=== PATIENT | male | born 1985 | race Caucasian/White ===

== ENCOUNTER 2019-10-31 09:27 | Emergency (ER) | payer OTHER, SELFPAY ==
[2019-10-31 09:42] VITALS: BP 127/84; PULSE 123; RESP 16; TEMP 38.9; O2SAT 98
--- NOTE | 2019-10-31 10:17 | ED.URI ---
HPI - URI/Sore Throat General Chief Complaint: Upper Respiratory Infection Stated Complaint: Congestion Time Seen by Provider: 10/31/19 10:17 Source: patient and RN notes reviewed Mode of arrival: ambulatory Limitations: no limitations History of Present Illness HPI Narrative: 34-year-old male presents with concern for fever, sore throat, body aches, chills that started last night. He reports he returned from a trip to [facility] on Friday. He reports he was not informed at the airport that he was flying from any area with known exposure to coronavirus, he was not issued a card indicating that he was high risk by the CDC at the airport. Reports taking Sudafed with little relief. MD elicited complaint: cough Related Data Allergies Allergy/AdvReac Type Severity Reaction Status Date / Time SULFA Allergy Unknown Uncoded 04/01/14 18:35 Review of Systems Review of Systems: Narrative: CONSTITUTIONAL: Reports malaise, chills, sweats, fever. EYES: Denies visual changes, redness, or discharge. ENT: Reports rhinorrhea, congestion, sore throat. Denies sinus pain, otalgia. CARDIOVASCULAR: Denies chest pain, palpitations, or edema. RESPIRATORY: Reports occasional cough. Denies dyspnea. GASTROINTESTINAL: Denies abdominal pain, nausea, vomiting, diarrhea SKIN: Denies rash or itching. MUSCULOSKELETAL: Reports myalgia. NEUROLOGIC: Reports headache. All systems reviewed & are unremarkable except as noted in HPI and below PMFSH Social History Social History Gender identity (if verbalized by the patient): Male Comments At time of signature, agree with nursing past medical, surgical, social and family history. There is no relevant family history pertinent to the presenting complaint Exam Narrative: Exam Narrative: GENERAL: Well-appearing, well-nourished, and in no acute distress. HEAD: Normocephalic EYES: PERRLA, conjunctivae clear ENT: Nares clear, turbinates edematous and erythematous, clear discharge. Mucous membranes moist. TM pearly sequeira with sharp light reflex bilaterally; no tragal tenderness. Oropharynx erythematous without lesions. Tonsils mildly enlarged and without exudate, no drooling, no hoarseness, no trismus. NECK: Supple. No lymphadenopathy CHEST: Clear to auscultation, breath sounds equal. No wheezing, rhonchi, rales, or stridor. No respiratory distress, speaks in full sentences. HEART: Regular rate and rhythm. No murmur heard. Normal peripheral pulses. SKIN: Warm, dry, no rash. NEURO: Alert and oriented x3. PSYCH: Normal mood and affect Course Course Emergency Course: Patient is aware of diagnosis, understands and agrees to treatment plan. Anticipatory guidance given. Patient agrees to follow-up as directed and is aware of reasons to seek care at the emergency department. Portions of this record may have been created with voice recognition software Vital Signs Vital signs: Vital Signs Temperature 102.0 F H 10/31/19 09:42 Pulse Rate 123 H 10/31/19 09:42 Respiratory Rate 16 10/31/19 09:42 Blood Pressure 127/84 10/31/19 09:42 Pulse Oximetry 98 10/31/19 09:42 Temperature 102.0 F H 10/31/19 09:42 Pulse Rate 123 H 10/31/19 09:42 Respiratory Rate 16 10/31/19 09:42 Blood Pressure 127/84 10/31/19 09:42 Pulse Oximetry 98 10/31/19 09:42 Reviewed. Pt has been instructed to follow up with his primary care provider within the next week regarding his elevated blood pressure today. MDM - URI/Sore Throat MDM Narrative Medical decision making narrative: Differential diagnosis considered: Strep pharyngitis, allergic rhinitis, upper respiratory tract infection, sinusitis, rhinosinusitis, nasopharyngitis. viral pharyngitis, otitis media, otitis externa, pneumonia, bronchitis, viral cough syndrome, viral syndrome, and influenza. Exam findings show no acute concerns or changes; patient is non-toxic appearing and is in no distress. RN consulted with Sera Gong, with infection control at [facility].
== END 2019-10-31 10:45 | disposition home or self-care (01) ==
PROVIDERS: Emergency Provider Nurse Practitioner
DX: J02.9 Acute pharyngitis, unspecified (principal); R52 Pain, unspecified; R50.9 Fever, unspecified
CPT/HCPCS: 87081; 87804; 87880; 99203; G0463

== ENCOUNTER 2020-04-18 14:43 | Outpatient (CLI) | payer OTHER, SELFPAY ==
[2020-04-18 15:20] LABS: Hematocrit 41.1 % (42.0-52.0); Hemoglobin 14.2 g/dL (14.0-18.0); Mean Corpuscular HGB Conc 34.5 g/dl (32-36); Mean Corpuscular Hemoglobin 32.9 pg (26-34); Mean Corpuscular Volume 95.4 fl (80-100); Mean Platelet Volume 9.4 fl (7.4-10.4); Platelet Count Result 294 k/mm3 (150-375); Red Blood Count 4.31 M/mm3 (4.6-6.20); Red Cell Distribution Width 11.8 % (11.5-14.5)
[2020-04-18 15:32] LABS: Alanine Aminotransferase 45 U/L (4-50); Albumin Level 4.6 g/dL (3.5-5.1); Alkaline Phosphatase 51 U/L (38-126); Aspartate Amino Transferase 56 U/L (17-59); Bilirubin,Total 0.9 mg/dL (0.2-1.3); Cholesterol 204 mg/dL (0-200); HDL Direct 84 mg/dL; Triglycerides 53 mg/dL (<150)
[2020-04-18 15:43] LABS: LDL Cholesterol Direct 91 mg/dL
== END 2020-04-18 14:44 | disposition home or self-care (01) ==
PROVIDERS: PCP Family Medicine; Visit Provider Family Medicine
DX: B35.3 Tinea pedis (principal); Z13.220 Encounter for screening for lipoid disorders
CPT/HCPCS: 36415; 80061; 80076; 85027

== ENCOUNTER 2020-12-11 09:01 | Emergency (ER) | payer OTHER, SELFPAY ==
--- NOTE | ~2020-12-11 | XR_ITS ---
EXAMINATION: XR tibia fibula LT 2V DATE: 12/11/2020 09:24 INDICATION: Left lower leg injury with possible treatment performed by the TECHNIQUE: Anteroposterior and lateral views of the left tibia and fibula were obtained. COMPARISON: None. FINDINGS: Alignment is normal. No fracture. Joint spaces are normal. Soft tissues are unremarkable. On one of t he lateral images a wire-like metallic density external to the patient is seen indicating to the subc utaneous tissues at the posterior aspect of the junction of the mid to distal third of the left lower leg. No evident underlying radiopaque or radiolucent foreign body. IMPRESSION: 1. Negative left lower leg radiographs. No evident radiopaque or radiolucent foreign body. Reviewed, dictated and finalized at location B. IMPRESSION: 1. Negative left lower leg radiographs. No evident radiopaque or radiolucent fo reign body.
[2020-12-11 09:07] VITALS: BP 128/71; PULSE 70; RESP 18; TEMP 36.7; O2SAT 100
--- NOTE | 2020-12-11 12:00 | ED.LOWEXIN ---
HPI - Extremity Injury (Lower) General Chief Complaint: Extremity Injury, Lower Stated Complaint: LLE pain Time Seen by Provider: 12/11/20 10:54 Source: patient Mode of arrival: ambulatory Limitations: no limitations History of Present Illness HPI Narrative: Patient presents for evaluation of his left lower leg. Patient states 2 days ago he was scratched by a thorn which across both legs but he has noted that the posterior aspect of the left leg has become red, tender and swollen. He denies fever, chills, nausea, vomiting, diarrhea, discharge from the area. Patient denies any other injuries or symptoms. Patient denies any chronic medical conditions. Patient is nontoxic on his tetanus. Related Data Allergies Allergy/AdvReac Type Severity Reaction Status Date / Time SULFA Allergy Unknown Hives Uncoded 12/11/20 10:57 Review of Systems Review of Systems: Narrative: CONSTITUTIONAL: Denies fever, chills, or sweats. EYES: Denies visual changes, redness, or discharge. ENT: Denies rhinorrhea, congestion, sore throat, or otalgia. CARDIOVASCULAR: Denies chest pain, palpitations, or edema. RESPIRATORY: Denies cough or dyspnea. GASTROINTESTINAL: Denies abdominal pain, nausea, vomiting, or diarrhea. GENITOURINARY: Denies dysuria or hematuria. SKIN: Reports redness and swelling denies rash or itching. MUSCULOSKELETAL: Denies back pain, joint pain, or myalgia. NEUROLOGIC: Denies headache, numbness, dizziness, or weakness. PSYCHIATRIC: Denies anxiety or depression. PMFSH Past Medical History Medical History (Updated 12/11/20 @ 12:01 by Portillo Daly PA-C) Encounter for wellness examination in adult Screening, lipid Tinea pedis Surgical History Surgical History S/P surgery on nasal septum Family History Family History Other Carcinoma of colon Hypertension Malignant neoplasm of prostate Skin cancer Social History Social History Smoking status: Former smoker Alcohol intake: current Gender identity (if verbalized by the patient): Male Exam Narrative: Exam Narrative: GENERAL: Well-appearing, well-nourished, and in no acute distress. HEAD: Normocephalic, atraumatic. EYES: PERRLA and EOMI. CHEST: Clear to auscultation. No respiratory distress. No wheezes rales or rhonchi HEART: Regular rate and rhythm. No murmur heard. Normal peripheral pulses. ABDOMEN: Soft, nontender, nondistended, normal active bowel sounds. EXTREMITIES: Normal range of motion. No edema. SKIN: Excoriations noted to bilateral legs. There is a scab area noted to the posterior aspect of the left lower leg that is slightly warm and tender. There is no fluctuance palpated beneath the area or any superficial foreign bodies noted. Warm, dry, no rash. NEURO: No focal deficits. Alert and oriented x3. PSYCH: Normal mood and affect. Course Vital Signs Vital signs: Vital Signs Temperature 98.0 F 12/11/20 09:07 Pulse Rate 70 12/11/20 09:07 Respiratory Rate 18 12/11/20 09:07 Blood Pressure 128/71 12/11/20 09:07 Pulse Oximetry 100 12/11/20 09:07 Temperature 98.0 F 12/11/20 09:07 Pulse Rate 70 12/11/20 09:07 Respiratory Rate 18 12/11/20 09:07 Blood Pressure 128/71 12/11/20 09:07 Pulse Oximetry 100 12/11/20 09:07 MDM - Extremity Injury (Lower) Differential Diagnosis Differential diagnosis: Likely other (Cellulitis, DVT, foreign body) Discharge Plan Discharge Clinical Impression: Cellulitis Qualifiers: Site of cellulitis: extremity Site of cellulitis of extremity: lower extremity Laterality: left Qualified Code(s): L03.116 - Cellulitis of left lower limb Puncture wound of leg not thigh Qualifiers: Encounter type: initial encounter Laterality: left Qualified Code(s): S81.832A - Puncture wound without foreign body, left lower leg, initial encounte
== END 2020-12-11 12:23 | disposition home or self-care (01) ==
PROVIDERS: Emergency Provider Emergency Medicine; PCP Family Medicine
DX: L03.116 Cellulitis of left lower limb (principal); S81.832A Puncture wound without foreign body, left lower leg, initial encounter; W60.XXXA Contact with nonvenomous plant thorns and spines and sharp leaves, initial encounter; Z87.891 Personal history of nicotine dependence
CPT/HCPCS: 73590; 99283

== ENCOUNTER 2023-10-30 09:03 | Outpatient (CLI) | payer OTHER, SELFPAY ==
--- NOTE | ~2023-10-30 | XR_ITS ---
EXAMINATION: XR chest 2V DATE: 10/30/2023 09:23 INDICATION: Cough TECHNIQUE: PA and lateral views of the chest are obtained. COMPARISON: None available FINDINGS: The lungs are free of acute opacities. No pleural effusion or pneumothorax. The cardiomedia stinal silhouette is normal. There is mild thoracic spondylosis. IMPRESSION: 1. No acute cardiopulmonary abnormality. Reviewed, dictated and finalized at location L. PRESIDENT PROCESS
[2023-10-30 09:33] LABS: Basophils Absolute Auto 0.1 K/mm3 (0.0-0.1); Basophils Percent Auto 1.2 % (0.2-1.2); Eosinophils Absolute Auto 0.1 K/mm3 (0-0.3); Eosinophils Percent Auto 1.5 % (0-4.4); Hematocrit 41.2 % (42.0-52.0); Hemoglobin 13.6 g/dL (14.0-18.0); Immature Granulocyte Absolute 0.03 K/mm3 (0.00-0.031); Immature Granulocyte Percent A 0.4 % (0-0.5); Lymphocytes Absolute Auto 0.91 K/mm3 (0.9-3.2); Lymphocytes Percent Auto 12.1 % (18.3-44.2); Mean Corpuscular Hemoglobin 30.6 pg (26-34); Mean Corpuscular Volume 92.6 fl (80-100); Mean Platelet Volume 9.5 fl (7.4-10.4); Monocytes Absolute Auto 0.7 K/mm3 (0.1-0.6); Monocytes Percent Auto 9.6 % (2.6-8.5); Neutrophils Absolute Auto 5.7 K/mm3 (1.3-6.7); Neutrophils Percent Auto 75.2 % (45.5-73.1); Platelet Count Result 276 k/mm3 (150-375); Red Blood Count 4.45 M/mm3 (4.6-6.20); White Blood Count 7.5 K/mm3 (4.5-10.0)
[2023-10-30 09:46] LABS: Alanine Aminotransferase 20 U/L (6-50); Alkaline Phosphatase 54 U/L (38-126); Anion Gap 8 mmol/L (8-16); Aspartate Amino Transferase 25 U/L (17-59); Bilirubin,Total 0.5 mg/dL (0.2-1.3); Blood Urea Nitrogen 11 mg/dL (9-20); Calcium 9.5 mg/dL (8.4-10.2); Carbon Dioxide 22 mmol/L (22-30); Chloride 108 mmol/L (98-107); Cholesterol 174 mg/dL (0-200); Estimated Glomerular Filt Rate > 60; Glucose 96 mg/dL (65-110); HDL Direct 49 mg/dL; Potassium 3.7 mmol/L (3.4-5.0); Sodium 138 mmol/L (137-145); Triglycerides 77 mg/dL (<150)
[2023-10-30 09:57] LABS: LDL Cholesterol Direct 94 mg/dL
== END 2023-10-30 09:04 | disposition home or self-care (01) ==
LOC: ANHLAB 09:04
PROVIDERS: PCP Family Medicine; Visit Provider Physician Assistant
DX: R05.9 Cough, unspecified (principal); R06.02 Shortness of breath; Z13.220 Encounter for screening for lipoid disorders; Z82.49 Family history of ischemic heart disease and other diseases of the circulatory system
CPT/HCPCS: 36415; 71046; 80053; 80061; 84443; 85025

== ENCOUNTER 2023-11-10 08:03 | Outpatient (CLI) | payer OTHER, SELFPAY ==
--- NOTE | 2023-11-10 08:13 | ECHO_ITS ---
Patient Info Name: Alessandro Cantu Age: 38 years : 1985 Gender: Male Ht: 69 in Wt: 180 lbs BSA: 2.01 m2 HR: 90 bpm BP: 146 / 84 mmHg Technical Quality: Good Exam Date: 11/10/2023 8:18 AM Exam Location: Echo Lab Patient Status: Outpatient Admit Date: 11/10/2023 Staff Ordering Physician: Jenny Montenegro PA-C Product Safety And Standards Engineer: Kaylee Rutledge RDCS Attending Provider: Nick Amezcua MD Referring Physician: Lan ANDRADE; Exam Type: CA echo doppler color flow Study Info Indications Z82.49 - Family history of ischemic heart disease and other diseases of the circulatory system Complete two-dimensional, color flow and Doppler transthoracic echocardiogram is performed. Strain analysis performed. Summary 1. Complete two-dimensional, color flow and Doppler transthoracic echocardiogram is performed. 2. Left ventricular chamber dimension is normal. 3. Left ventricular systolic function is normal, estimated at 60-65%. 4. The left ventricular diastolic function is normal. 5. E/e' 5 is not elevated. 6. Global longitudinal strain is normal at -18.3%. 7. No pulmonary hypertension, estimated pulmonary arterial systolic pressure is 26 mmHg. Left Ventricle E/e' 5 is not elevated. Global longitudinal strain is normal at -18.3%. Left ventricular chamber dimension is normal. Left ventricular systolic function is normal, estimated at 60-65%. The left ventricular diastolic function is normal. Right Ventricle Right ventricular systolic function is normal and with normal TAPSE 2.1 cm. Right ventricular chamber dimension is normal. Left Atria Left atrial chamber dimension is normal. Right Atria Right atrial chamber dimension is normal. Aortic Valve The aortic valve is trileaflet. There is no aortic valve stenosis. There is no aortic valve regurgitation. Pulmonic Valve There is no pulmonic regurgitation. Mitral Valve There is no mitral valve stenosis. There is no mitral valve regurgitation. Tricuspid Valve There is no tricuspid valve regurgitation. No pulmonary hypertension, estimated pulmonary arterial systolic pressure is 26 mmHg. Pericardium/Pleural There is no pericardial effusion. Inferior Vena Cava Normal inferior vena cava with >50% collapse upon inspiration consistent with normal right atrial pressure, 5 mmHg. Aorta The aortic root size at the sinus of Valsalva is normal. Left Ventricular Outflow Tract Name Value Normal LVOT 2D LVOT Diameter 2.0 cm LVOT Doppler LVOT Peak Gradient 5 mmHg LVOT Mean Gradient 3 mmHg LVOT VTI 21 cm LVOT VTI/AV VTI Ratio 0.9 LVOT Stroke Volume 67 ml LVOT CO 5.9 l/min LVOT CI 2.9 l/min/m2 Pulmonic Valve Name Value Normal RVOT Doppler RVOT Peak Gradient 2 mmHg
== END 2023-11-10 08:04 | disposition home or self-care (01) ==
PROVIDERS: PCP Family Medicine; Visit Provider Family Medicine
DX: R06.02 Shortness of breath (principal); Z82.49 Family history of ischemic heart disease and other diseases of the circulatory system
CPT/HCPCS: 93306

== ENCOUNTER 2023-11-15 20:18 | Emergency (ER) | payer OTHER, SELFPAY ==
--- NOTE | ~2023-11-15 | XR_ITS ---
EXAMINATION: XR ribs LT 2V w CXR 2V DATE: 11/15/2023 21:41 INDICATION: Left chest pain. Cough. TECHNIQUE: Frontal and lateral views of the chest and 2 views on 4 radiographs of the left ribs were obtained. COMPARISON: Chest 2 views 10/30/2023 FINDINGS: CHEST TWO VIEWS: There are airspace opacities in left lower lung zone. No pleural effusion or pneumot horax. The heart size is normal. LEFT RIBS: There is no rib fracture. IMPRESSION: 1. Airspace opacities in left lower lung zone, consistent with pneumonia. 2. No rib fracture. Reviewed, dictated and finalized at location E. STEWARD/STEWARDESS
[2023-11-15 20:20] VITALS: BP 159/105; PULSE 102; RESP 15; TEMP 37.4; O2SAT 100
--- NOTE | 2023-11-15 20:39 | ECG_ITS ---
Measurements Intervals [place] Rate: 92 P: 51 PA: 168 QRS: 61 QRSD: 94 T: 32 QT: 335 QTc: 415 Interpretive Statements SINUS RHYTHM MINIMAL Q WAVES- INFERIOR LEADS ST ELEVATION IN DIFFUSE LEADS CONSISTENT WITH INJURY, PERICARDITIS, OR EARLY REPOLARIZATION BASELINE ARTIFACT- I, II, III, AVR, V4-V6 ABNORMAL ECG NO PREVIOUS ECG AVAILABLE FOR COMPARISON Electronically Signed On 11-16-2023 9:44:17 CDT by Sukhdev Forte D.O.
--- NOTE | 2023-11-15 20:48 | ED.GENADULT ---
HPI - General Adult General Chief complaint: Unspecified Stated complaint: left rib pain Time Seen by Provider: 11/15/23 20:39 Source: patient Mode of arrival: ambulatory Limitations: no limitations History of Present Illness HPI narrative: This is a 38 year old male that presents to the ER for left sided rib/chest pain ongoing since this morning. Reports recent viral URI, is unsure if he injured himself coughing. Pain has been ongoing since this morning. Worse with breathing. He took an Advil this morning for pain. Denies fever, shortness of breath or lower extremity edema. Related Data Allergies Allergy/AdvReac Type Severity Reaction Status Date / Time SULFA Allergy Unknown Hives Uncoded 11/15/23 20:25 Review of Systems Review of Systems: CONSTITUTIONAL: Denies fever CARDIOVASCULAR: Reports chest pain. Denies edema. RESPIRATORY: Denies dyspnea. All systems reviewed & are unremarkable except as noted in HPI and below PMFSH Past Medical History Medical History (Updated 11/16/23 @ 00:24 by Chela Valverde PA-C) BMI 28.0-28.9,adult Encounter for wellness examination in adult Screening, lipid Tinea pedis Surgical History Surgical History S/P surgery on nasal septum Family History Family History Other Carcinoma of colon Hypertension Malignant neoplasm of prostate Skin cancer Social History Social History Smoking status: Former smoker Alcohol intake: current Gender identity (if verbalized by the patient): Male Exam Narrative: GENERAL: Well-appearing, well-nourished, and in no acute distress. HEAD: Normocephalic, atraumatic. EYES: EOMI. CHEST: No respiratory distress. Rales in the left lower lobe. No wheezes or rhonchi HEART: Regular rate and rhythm. No murmur heard. Normal peripheral pulses. EXTREMITIES: Normal range of motion. No edema. SKIN: Warm, dry, no rash. NEURO: No focal deficits. Alert and oriented x3. PSYCH: Normal mood and affect Course Course Emergency Course: Patient updated on workup and agrees with plan of care Vital Signs Vital signs: Vital Signs Temperature 99.4 F 11/15/23 20:20 Pulse Rate 102 H 11/15/23 20:20 Respiratory Rate 15 11/15/23 20:20 Blood Pressure 159/105 H 11/15/23 20:20 Pulse Oximetry 100 11/15/23 20:20 Oxygen Delivery Room Air 11/15/23 20:20 Temperature 99.4 F 11/15/23 20:20 Pulse Rate 93 11/15/23 22:30 Respiratory Rate 14 11/15/23 22:30 Blood Pressure 136/99 H 11/15/23 22:29 Pulse Oximetry 100 11/15/23 22:30 Oxygen Delivery Room Air 11/15/23 20:20 Medical Decision Making MDM Narrative Medical decision making narrative: Patient presents the emergency department for left-sided chest/rib pain ongoing since this morning. He is afebrile and nontoxic appearing. Tachycardic upon arrival, this normalized with treatment of his pain. CBC with mild leukocytosis to 12.6. Hemoglobin appears stable. Metabolic panel without concerning findings. EKG shows findings of likely early repolarization. His baseline and 3 hour troponin are negative. D-dimer is not elevated. Left rib/chest x-ray shows left lower lobe pneumonia. Patient updated on workup and agrees with plan of care. Will be started on oral antibiotics. He is to have close follow-up with his primary provider. He was given warnings to return to the ER Vital Signs Vital Signs: Vital Signs Temperature 99.4 F 11/15/23 20:20 Pulse Rate 102 H 11/15/23 20:20 Respiratory Rate 15 11/15/23 20:20 Blood Pressure 159/105 H 11/15/23 20:20 Pulse Oximetry 100 11/15/23 20:20 Oxygen Delivery Room Air 11/15/23 20:20 Temperature 99.4 F 11/15/23 20:20 Pulse Rate 93 11/15/23 22:30 Respiratory Rate 14 11/15/23 22:30 Blood Pressure 136/99 H 11/15/23 22:29 Pulse Oximet
[2023-11-15] MEDS: KETOROLAC 15 MG/ML VIAL (*BKC) IV PUSH (21:15)
[2023-11-15] MEDS: ACETAMINOPHEN 500 MG TABLET 1000 MG PO (21:15)
[2023-11-15 21:16] LABS: Basophils Absolute Auto 0.2 K/mm3 (0.0-0.1); Basophils Percent Auto 1.2 % (0.2-1.2); Eosinophils Absolute Auto 0.3 K/mm3 (0-0.3); Eosinophils Percent Auto 2.6 % (0-4.4); Hematocrit 40.3 % (42.0-52.0); Hemoglobin 13.8 g/dL (14.0-18.0); Immature Granulocyte Absolute 0.06 K/mm3 (0.00-0.031); Immature Granulocyte Percent A 0.5 % (0-0.5); Lymphocytes Absolute Auto 2.21 K/mm3 (0.9-3.2); Lymphocytes Percent Auto 17.5 % (18.3-44.2); Mean Corpuscular HGB Conc 34.2 g/dl (32-36); Mean Corpuscular Hemoglobin 30.6 pg (26-34); Mean Corpuscular Volume 89.4 fl (80-100); Mean Platelet Volume 9.4 fl (7.4-10.4); Monocytes Absolute Auto 1.2 K/mm3 (0.1-0.6); Monocytes Percent Auto 9.2 % (2.6-8.5); Neutrophils Absolute Auto 8.7 K/mm3 (1.3-6.7); Platelet Count Result 322 k/mm3 (150-375); Red Blood Count 4.51 M/mm3 (4.6-6.20); Red Cell Distribution Width 12.5 % (11.5-14.5); White Blood Count 12.6 K/mm3 (4.5-10.0)
[2023-11-15 21:27] LABS: INR 0.9; Prothrombin Time 12.8 Seconds (11.1-14.7)
[2023-11-15 21:31] LABS: D Dimer 0.47 ug/mL (<0.48)
[2023-11-15 21:32] LABS: Alanine Aminotransferase 25 U/L (6-50); Albumin Level 4.2 g/dL (3.5-5.1); Alkaline Phosphatase 59 U/L (38-126); Anion Gap 7 mmol/L (8-16); Aspartate Amino Transferase 31 U/L (17-59); Bilirubin,Total 0.7 mg/dL (0.2-1.3); Blood Urea Nitrogen 14 mg/dL (9-20); Calcium 9.7 mg/dL (8.4-10.2); Carbon Dioxide 27 mmol/L (22-30); Chloride 105 mmol/L (98-107); Estimated CRCL calculation 98 ml/min; Estimated Glomerular Filt Rate > 60; Glucose 101 mg/dL (65-110); Lipase 148 U/L (23-300); Potassium 3.8 mmol/L (3.4-5.0); Sodium 139 mmol/L (137-145)
[2023-11-15 21:44] LABS: Troponin I < 0.012 ng/mL (0.000-0.034)
[2023-11-15 22:29] VITALS: BP 136/99; PULSE 93; RESP 14; O2SAT 100
[2023-11-15 22:30] VITALS: PULSE 93; RESP 14; O2SAT 100
[2023-11-15] MEDS: diazePAM INJ (*CRX) 10 MG/2 ML SYRINGE 5 MG IV PUSH (23:11)
--- NOTE | 2023-11-15 23:36 | ECG_ITS ---
Measurements Intervals [place] Rate: 72 P: 65 NE: 176 QRS: 51 QRSD: 96 T: 28 QT: 376 QTc: 414 Interpretive Statements SINUS RHYTHM MINIMAL Q WAVES- INFERIOR LEADS ST ELEVATION IN DIFFUSE LEADS- PROBABLY EARLY REPOLARIZATION ABNORMALITY BASELINE ARTIFACT- V5-V6 BORDERLINE ECG COMPARED TO ECG 11/15/2023 21:02:45 NO SIGNIFICANT CHANGES Electronically Signed On 11-16-2023 9:47:32 CDT by Sukhdev Forte D.O.
[2023-11-16 00:17] LABS: Troponin I < 0.012 ng/mL (0.000-0.034)
[2023-11-16 00:46] VITALS: BP 141/82; PULSE 91; RESP 14; O2SAT 98
== END 2023-11-16 00:48 | disposition home or self-care (01) ==
PROVIDERS: Emergency Provider Physician Assistant; PCP Family Medicine
DX: J18.9 Pneumonia, unspecified organism (principal); R07.1 Chest pain on breathing; Z87.891 Personal history of nicotine dependence
CPT/HCPCS: 36415; 71046; 71100; 80053; 83690; 84484; 85025; 85380; 85610; 85730; 93005; 96374; 96375; 99284; A9270; J1885; J3360

== ENCOUNTER 2024-01-21 14:14 | Outpatient (CLI) | payer OTHER, SELFPAY ==
--- NOTE | ~2024-01-21 | XR_ITS ---
EXAMINATION: XR chest 2V DATE: 01/21/2024 14:31 INDICATION: Relapsing fever. TECHNIQUE: Frontal and lateral views of the chest were obtained. COMPARISON: Chest 2 views 11/15/2023 FINDINGS: There are mild airspace opacities in left lower lung zone. No pleural effusion or pneumotho rax. The heart size is normal. IMPRESSION: 1. Mild airspace opacities in left lower lung zone with interval improvement, consistent with atelect asis versus pneumonia. Reviewed, dictated and finalized at location E. IMPRESSION: 1. Mild airspace opacities in left lower lung zone with interval improvement, c onsistent with atelectasis versus pneumonia.
[2024-01-21 15:56] LABS: Basophils Absolute Auto 0.1 K/mm3 (0.0-0.1); Eosinophils Absolute Auto 0.5 K/mm3 (0-0.3); Eosinophils Percent Auto 3.9 % (0-4.4); Hematocrit 44.5 % (42.0-52.0); Hemoglobin 14.9 g/dL (14.0-18.0); Immature Granulocyte Absolute 0.06 K/mm3 (0.00-0.031); Immature Granulocyte Percent A 0.4 % (0-0.5); Lymphocytes Absolute Auto 1.86 K/mm3 (0.9-3.2); Lymphocytes Percent Auto 13.9 % (18.3-44.2); Mean Corpuscular HGB Conc 33.5 g/dl (32-36); Mean Corpuscular Hemoglobin 30.2 pg (26-34); Mean Corpuscular Volume 90.1 fl (80-100); Monocytes Absolute Auto 0.5 K/mm3 (0.1-0.6); Monocytes Percent Auto 3.9 % (2.6-8.5); Neutrophils Absolute Auto 10.3 K/mm3 (1.3-6.7); Neutrophils Percent Auto 76.9 % (45.5-73.1); Platelet Count Result 302 k/mm3 (150-375); Red Blood Count 4.94 M/mm3 (4.6-6.20); Red Cell Distribution Width 12.7 % (11.5-14.5); White Blood Count 13.4 K/mm3 (4.5-10.0)
[2024-01-21 16:12] LABS: Anion Gap 6 mmol/L (4-12); Blood Urea Nitrogen 15 mg/dL (9-20); Calcium 9.1 mg/dL (8.4-10.2); Carbon Dioxide 25 mmol/L (22-30); Chloride 106 mmol/L (98-107); Estimated Glomerular Filt Rate > 60; Glucose 78 mg/dL (65-110); Potassium 3.9 mmol/L (3.4-5.0); Sodium 137 mmol/L (137-145)
== END 2024-01-21 14:15 | disposition home or self-care (01) ==
LOC: ANHLAB 14:16
PROVIDERS: PCP Family Medicine; Visit Provider Physician Assistant
DX: A68.9 Relapsing fever, unspecified (principal); J18.9 Pneumonia, unspecified organism; R91.8 Other nonspecific abnormal finding of lung field
CPT/HCPCS: 36415; 71046; 80048; 85025

== ENCOUNTER 2024-02-16 15:56 | Outpatient (CLI) | payer OTHER, SELFPAY ==
--- NOTE | ~2024-02-16 | XR_ITS ---
Clinical Indication: Pneumonia PA and lateral views of the chest: Comparison: 01/21/2024 Findings: Possible persistent focal retrocardiac airspace opacity. Right lung clear. Cardiomediastin al silhouette is within normal limits. Bones and soft tissues are unremarkable. Impression: Possible persistent focal retrocardiac airspace opacity, which could reflect residual pneumonia. Reviewed, dictated and finalized at location . Impression: Possible persistent focal retrocardiac airspace opacity, which could reflect re sidual pneumonia.
== END 2024-02-16 15:57 | disposition home or self-care (01) ==
LOC: ANHLAB 15:57 → ANHIMG 15:57
PROVIDERS: PCP Family Medicine; Visit Provider Physician Assistant Medical
DX: J18.9 Pneumonia, unspecified organism (principal)
CPT/HCPCS: 71046

== ENCOUNTER 2024-03-04 12:12 | Outpatient (CLI) | payer OTHER, SELFPAY ==
[2024-03-04 12:51] LABS: Basophils Absolute Auto 0.1 K/mm3 (0.0-0.1); Basophils Percent Auto 1.6 % (0.2-1.2); Eosinophils Absolute Auto 0.4 K/mm3 (0-0.3); Hematocrit 42.2 % (42.0-52.0); Hemoglobin 14.5 g/dL (14.0-18.0); Immature Granulocyte Absolute 0.02 K/mm3 (0.00-0.031); Immature Granulocyte Percent A 0.3 % (0-0.5); Lymphocytes Absolute Auto 1.43 K/mm3 (0.9-3.2); Lymphocytes Percent Auto 23.1 % (18.3-44.2); Mean Corpuscular HGB Conc 34.4 g/dl (32-36); Mean Corpuscular Hemoglobin 30.8 pg (26-34); Mean Corpuscular Volume 89.6 fl (80-100); Monocytes Absolute Auto 0.5 K/mm3 (0.1-0.6); Monocytes Percent Auto 7.3 % (2.6-8.5); Neutrophils Absolute Auto 3.8 K/mm3 (1.3-6.7); Neutrophils Percent Auto 61.7 % (45.5-73.1); Platelet Count Result 253 k/mm3 (150-375); Red Blood Count 4.71 M/mm3 (4.6-6.20); Red Cell Distribution Width 12.6 % (11.5-14.5); White Blood Count 6.2 K/mm3 (4.5-10.0)
== END 2024-03-04 12:13 | disposition home or self-care (01) ==
LOC: ANHLAB 12:13
PROVIDERS: PCP Family Medicine; Visit Provider Internal Medicine Pulmonary Disease
DX: J18.9 Pneumonia, unspecified organism (principal)
CPT/HCPCS: 36415; 85025

== ENCOUNTER 2024-04-21 11:34 | Outpatient (CLI) | payer OTHER, SELFPAY ==
--- NOTE | ~2024-04-21 | XR_ITS ---
XR chest 2V Ordering provider: El Noel APRN History: 39 years Male with . Pneumonia, unspecified organism, SOB, CONGESTION X DECEMBER 30 . Comparison: February 16, 2024 FINDINGS: MEDIASTINUM: The cardiac silhouette is not enlarged. LUNGS: No infiltrates, effusions or pneumothorax. Prominent markings in the left lower lobe area. OTHER: No free air under the diaphragm. IMPRESSION: Prominent markings in the lower lobes. Otherwise, No acute cardiopulmonary pathology. Reviewed, dictated and finalized at location A.
== END 2024-04-21 11:35 | disposition home or self-care (01) ==
LOC: ANHIMG 11:37
PROVIDERS: PCP Family Medicine; Visit Provider Nurse Practitioner Family
DX: J18.9 Pneumonia, unspecified organism (principal)
CPT/HCPCS: 71046

== ENCOUNTER 2024-05-03 13:25 | Outpatient (CLI) | payer OTHER, SELFPAY ==
--- NOTE | ~2024-05-03 | CT_ITS ---
EXAMINATION:CT diagnostic chest wo con DATE: 05/03/2024 14:35 INDICATION: Pneumonia, unspecified organism. TECHNIQUE: Computed tomography (CT) of the chest was performed without intravenous contrast. Automate d exposure control and iterative reconstruction technique were employed. The dose-length product (DLP ) was 235.23 mGy-cm. COMPARISON: Chest 2 views 04/21/2024 FINDINGS: There is a pneumatocele in left lower lobe. Calcified left lung nodules and calcified left hilar and mediastinal lymph nodes are consistent with old granulomatous disease. No pleural effusion. The heart size is normal. No pericardial effusion. There is mild bilateral gynecomastia. There is se catalina spondylosis at T8-T9 and mild spondylosis at other levels. IMPRESSION: 1. No acute cardiopulmonary disease. Reviewed, dictated and finalized at location A.
--- NOTE | ~2024-05-03 | CT_ITS ---
EXAMINATION: CT sinus wo con DATE: 05/03/2024 14:35 INDICATION: Chronic sinusitis, unspecified. TECHNIQUE: Computed tomography (CT) of the paranasal sinuses was performed without intravenous contra st. Iterative reconstruction technique was employed. The dose-length product was 235.23 mGy-cm. COMPARISON: None FINDINGS: There is mild mucosal thickening in left frontal sinus and the bilateral ethmoid sinuses. T he sphenoid sinuses are clear. There is mild mucosal thickening in the maxillary sinuses inferiorly. There is rightward deviation of the nasal septum. The middle turbinates are paradoxical. The ostiomea abhi units are patent. IMPRESSION: 1. Mild mucosal thickening in the paranasal sinuses. 2. Rightward deviation of the nasal septum. Reviewed, dictated and finalized at location A.
== END 2024-05-03 13:26 | disposition home or self-care (01) ==
LOC: ANHIMG 13:28
PROVIDERS: PCP Family Medicine; Visit Provider Nurse Practitioner Family
DX: J32.9 Chronic sinusitis, unspecified (principal); J18.9 Pneumonia, unspecified organism; A68.9 Relapsing fever, unspecified; R05.1 Acute cough; J34.2 Deviated nasal septum
CPT/HCPCS: 70486; 71250; 87070; 87205